=== PATIENT | female | born 1990 | race Caucasian/White ===

== ENCOUNTER 2018-03-10 20:40 | Outpatient (CLI) | payer BC, SELFPAY ==
[2018-03-10 21:21] VITALS: BMI 33.0
--- NOTE | 2018-03-10 22:48 | OB.TRI.NOTE ---
History of Present Illness Date of Service: 03/10/18 Was patient seen by the physician?: Yes Reason For Visit: R/O PRE E Date of Service: 03/10/18 Final DOM: 03/31/18 Final DOM Source: LMP Gestational age: 37 Weeks and 0 Days History of Present Illness: 27 year old at 37 weeks EGA by LMP. Patient presented to office visit on 03/09/18 with BLE swelling. Assessment negative in office and BP normal, +1 BLE pitting edema. Patient had Pre-E labs drawn and Protein/Creatine ratio elevated at 0.4. Patient had 24hr urine protein ordered but was not completed due to lab closure time. Notified patient that she needed to come to hosptial for NST, BP check and evaluation due to elevated pro/creat ratio. Denies any headache, scotoma, chest pain, shortness of breath, vaginal bleeding, leakage of fluid or contractions. Patient states BLE edema has improved today. Home Medications Medication Instructions Recorded Vits [Prenatabs FA] 1 tablet PO DAILY 03/10/18 Sertraline HCl [Zoloft] 50 mg PO DAILY 03/10/18 Allergies No Known Allergies Allergy (Verified 03/10/18 21:41) Physical Exam General: Alert, Oriented x3, No apparent distress Cardiovascular: Regular rate, Regular Rhythm, No murmurs Lungs: Clear to auscultation, Normal air movement, No rhonchi, No wheeze Extremities:: Deep tendon reflexes - +2/4 bilateral patella. , Other - +1 pedal edema, pitting. Colnus +2 BLE NST - FHR Rate Baby A Baseline: 135 Variability:: Moderate Accelerations:: 15 x 15 Decelerations:: None NST Reactive:: Yes FHR Category:: Category I Uterine Activity:: Irregular, mild, patient does not feel contractions Impression/Plan A: 27 year old at 37 weeks for r/o pre-eclampsia Elevated protein/creat ratio P: 1) Normotensive on visit today. 2) NST reative 3) 24hr Urine started while on unit today, to return to [facility] lab in 24hr. 4) Appt on Monday at 9am for evaluation and BP check 5) notified about patient labs, elevated pro/creat ratio, clonus beats, and normotensive. Agrees with plan for D/C home and follow up on 03/12/18 6) Pre-E warning signs given to patient and reviewed when to call.
--- NOTE | 2018-03-10 23:05 | OB.TRI.HP_ITS ---
History of Present Illness Date of Service: 03/10/18 Was patient seen by the physician?: Yes Reason For Visit: R/O PRE E Date of Service: 03/10/18 Final DOM: 03/31/18 Final DOM Source: LMP Gestational age: 37 Weeks and 0 Days History of Present Illness: 27 year old at 37 weeks EGA by LMP. Patient presented to office visit on 09/16 with BLE swelling. Assessment negative in office and BP normal, +1 BLE pitting edema. Patient had Pre-E labs drawn and Protein/Creatine ratio elevated at 0.4. Patient had 24hr urine protein ordered but was not completed due to lab closure time. Notified patient that she needed to come to hosptial for NST, BP check and evaluation due to elevated pro/creat ratio. Denies any headache, scotoma, chest pain, shortness of breath, vaginal bleeding, leakage of fluid or contractions. Patient states BLE edema has improved today. Home Medications Medication Instructions Recorded Vits [Prenatabs FA] 1 tablet PO DAILY 03/10/18 Sertraline HCl [Zoloft] 50 mg PO DAILY 03/10/18 Allergies No Known Allergies Allergy (Verified 03/10/18 21:41) Physical Exam General: Alert, Oriented x3, No apparent distress Cardiovascular: Regular rate, Regular Rhythm, No murmurs Lungs: Clear to auscultation, Normal air movement, No rhonchi, No wheeze Extremities:: Deep tendon reflexes - +2/4 bilateral patella. , Other - +1 pedal edema, pitting. Colnus +2 BLE NST - FHR Rate Baby A Baseline: 135 Variability:: Moderate Accelerations:: 15 x 15 Decelerations:: None NST Reactive:: Yes FHR Category:: Category I Uterine Activity:: Irregular, mild, patient does not feel contractions Impression/Plan A: 27 year old at 37 weeks for r/o pre-eclampsia Elevated protein/creat ratio P: 1) Normotensive on visit today. 2) NST reative 3) 24hr Urine started while on unit today, to return to [facility] lab in 24hr. 4) Appt on Monday at 9am for evaluation and BP check 5) notified about patient labs, elevated pro/creat ratio, clonus beats, and normotensive. Agrees with plan for D/C home and follow up on 03/12/18 6) Pre-E warning signs given to patient and reviewed when to call.
[2018-03-11 21:41] LABS: 24 Hour Urine Protein 534.3 mg/24HR (<150 MG/24HR); 24HR. UA Prot. Total Volume 1775 mL; Urine Protein (24 Hour) 30.1 mg/dL (<11.9)
== END 2018-03-10 22:45 | disposition home or self-care (01) ==
LOC: WPOUT 21:15 → WP 21:20
PROVIDERS: Advanced Practice Midwife; Family Provider Student in an Organized Health Care Education/Training Program; PCP Student in an Organized Health Care Education/Training Program; Visit Provider Obstetrics & Gynecology
DX: Z34.03 Encounter for supervision of normal first pregnancy, third trimester (principal); M79.89 Other specified soft tissue disorders; R94.4 Abnormal results of kidney function studies
CPT/HCPCS: 59025; 59050; 84156; 99218; G0378

== ENCOUNTER 2018-03-12 07:07 | Inpatient (IN) | payer BC, SELFPAY ==
[2018-03-12 07:45] VITALS: BMI 31.4
[2018-03-12] MEDS: Lactated Ringers 1,000 ML 50 ML IV (08:00)
[2018-03-12 08:22] LABS: Hematocrit 32.6 % (37-47); Hemoglobin 10.5 g/dl (12.0-15.0); Mean Corp Hgb Conc 32.2 g/gl (32-36); Mean Corpuscular Hgb 28.3 pg (27.0-32.0); Mean Corpuscular Volume 87.9 fL (81-99); Mean Platelet Vol. 11.9 fl (6.2-12.0); Platelet Count 179 K/mm3 (150-450); Red Blood Count 3.71 M/mm3 (4.2-5.4); White Blood Count 8.9 K/mm3 (4.4-11.0)
[2018-03-12 08:23] LABS: Scan Indicated on CBC? Y/N NO
[2018-03-12 08:26] LABS: International Normalized Ratio 0.9; Prothrombin Time (Protime)PT. 12.5 SECONDS (11.7-14.9)
[2018-03-12 08:27] LABS: Partial Thromboplast Time 24.9 Seconds (24.1-36.2)
[2018-03-12 08:31] LABS: AST(SGOT) 24 U/L (15-37); Alanine Aminotransfer ALT/SGPT 25 U/L (13-56); Creatinine, Serum 0.69 mg/dL (0.55-1.02); EST Glomerular Filtration Rate 107 mL/min (>60); Est Glom Filt Rate - Afr Amer 129 mL/min (>60); Uric Acid 5.1 mg/dL (2.6-6.0)
[2018-03-12] MEDS: miSOPROStol 25 MCG TABLET VAGINAL ×4 (08:38→21:09)
--- NOTE | 2018-03-12 09:00 | PCM.HP.OB ---
- Problem List (1) Proteinuria affecting in third trimester Status: Acute (2) History of anxiety Status: Acute (3) Pre-eclampsia Status: Acute Qualifiers: Trimester: third trimester Qualified Code(s): O14.93 - Unspecified pre-eclampsia, third trimester History Date of Admission: 03/12/18 Final DMO: 03/31/18 Final DOM Source: US <20 weeks Gestational age: 37 Weeks and 2 Days History of this : Patient seen in office on Monday03/09/18 for new onset severe pedal edema. Patient was normotensive at that time. Baseline pre-eclampsia bloodwork and 24 hour urine collected. 24 hour urine value >500 with remainder of blood work in normal range. Decision made with attending provider at that time to induce patient's labor for atypical pre-eclampsia with large proteinuria. Pertinent Past Medical History: Hx of Anxiety/Depression - patient currently takes Zoloft 50mg PO daily Allergies No Known Allergies Allergy (Verified 03/10/18 21:41) Current Medications Acetaminophen (Tylenol) 325 - 650 mg PO Q4H PRN PRN PRN Reason: PAIN OR FEVER >100.4F Al Hydroxide/Mg Hydroxide (Mylanta Ii) 15 - 30 ml PO Q4H PRN PRN PRN Reason: INDIGESTION Citric Acid/Sodium Citrate (Bicitra) 30 ml PO UD PRN Lactated Ringer's () 1,000 mls @ 50 mls/hr IV .Q20H [facility] Last Admin: 03/12/18 08:00 Dose: 50 mls/hr Misoprostol (Cytotec) 25 mcg VAGINAL Q4H [facility] Stop: 03/13/18 04:51 Nalbuphine HCl (Nubain) 5 - 10 mg IV Q3H PRN PRN PRN Reason: PAIN (4-10/10) Ondansetron HCl (Zofran) 4 mg IV Q8H PRN PRN PRN Reason: NAUSEA Promethazine HCl (Phenergan) 6.25 - 12.5 mg IV Q4H PRN PRN; Protocol PRN Reason: IF NAUSEA PERSISTS Sodium Chloride () 5 - 15 ml IV UD [facility] Smoking Status: Never smoker Alcohol: None Drug Use: none Number of Fetus(es): 1 Review of Systems Constitutional: Denies: Chills, Fever, Weight Change HEENT: Denies: Head Aches, Sinus Congestion, Sinus Drainage Cardiovascular: Denies: Chest Pain, Palpitations Respiratory: Denies: Shortness of Breath, Shortness of breath at rest Gastrointestinal: Denies: Abdominal Pain, Nausea, Vomiting Genitourinary: Denies: Dysuria Gynecological: Denies: Vaginal bleeding, Vaginal discharge Musculoskeletal: Denies: Joint Pain, Joint Tenderness Skin: Denies: Rash, Wounds Neurological: Denies: Numbness, Tingling, Focal weakness Psychiatric: Denies: Anxiety, Depression, Homicidal Ideations, Suicidal Ideations Hematologic/ Lymphatic: Denies: Easy Bruising, Easy Bleeding Physical Exam Vitals: See nursing notes for vitals FHT baseline 135, moderate variability, +accels, no decels noted Ctx uterine irritability noted EFW = 6# by Rivera's General: Alert, Oriented x3, No apparent distress Cardiovascular: Regular rate, Regular Rhythm Lungs: Clear to auscultation Abdomen: Soft, Non Tender, Gravid, Appropriate for Gestational Age Extremities:: No edema Estimated gestational size: Appropriate for gestational size Presentation: Cephalic Cervix Dilation (cm): 0 Station: -3 Effacement (%): 30 Assessment/Plan Active and Suspected Problems Proteinuria affecting in third trimester (Acute) History of anxiety (Acute) Pre-eclampsia (Acute) 27 y/o @ 37.2 weeks, Atypical pre-eclampsia without severe features, Proteinuria, Category I FHT P: 1) Consultation with Dr. Darian DOW, plan to induce using Cytotec at this time 2) Admit patient - IV start, CBC, T+S, repeat Pre-eclampsia labs drawn 3) Reassess SVE in 4 hours or PRN Zelda BELLE
--- NOTE | 2018-03-12 09:11 | HP.PCM_ITS ---
- Problem List (1) Proteinuria affecting in third trimester Status: Acute (2) History of anxiety Status: Acute (3) Pre-eclampsia Status: Acute Qualifiers: Trimester: third trimester Qualified Code(s): O14.93 - Unspecified pre- eclampsia, third trimester History Date of Admission: 03/12/18 Final DOM: 03/31/18 Final DOM Source: US <20 weeks Gestational age: 37 Weeks and 2 Days History of this : Patient seen in office on Monday03/09/18 for new onset severe pedal edema. Patient was normotensive at that time. Baseline pre-eclampsia bloodwork and 24 hour urine collected. 24 hour urine value >500 with remainder of blood work in normal range. Decision made with attending provider at that time to induce patient's labor for atypical pre-eclampsia with large proteinuria. Pertinent Past Medical History: Hx of Anxiety/Depression - patient currently takes Zoloft 50mg PO daily Allergies No Known Allergies Allergy (Verified 03/10/18 21:41) Current Medications Acetaminophen (Tylenol) 325 - 650 mg PO Q4H PRN PRN PRN Reason: PAIN OR FEVER >100.4F Al Hydroxide/Mg Hydroxide (Mylanta Ii) 15 - 30 ml PO Q4H PRN PRN PRN Reason: INDIGESTION Citric Acid/Sodium Citrate (Bicitra) 30 ml PO UD PRN Lactated Ringer's () 1,000 mls @ 50 mls/hr IV .Q20H [facility] Last Admin: 03/12/18 08:00 Dose: 50 mls/hr Misoprostol (Cytotec) 25 mcg VAGINAL Q4H [facility] Stop: 03/13/18 04:51 Nalbuphine HCl (Nubain) 5 - 10 mg IV Q3H PRN PRN PRN Reason: PAIN (4-10/10) Ondansetron HCl (Zofran) 4 mg IV Q8H PRN PRN PRN Reason: NAUSEA Promethazine HCl (Phenergan) 6.25 - 12.5 mg IV Q4H PRN PRN; Protocol PRN Reason: IF NAUSEA PERSISTS Sodium Chloride () 5 - 15 ml IV UD [facility] Smoking Status: Never smoker Alcohol: None Drug Use: none Number of Fetus(es): 1 Review of Systems Constitutional: Denies: Chills, Fever, Weight Change HEENT: Denies: Head Aches, Sinus Congestion, Sinus Drainage Cardiovascular: Denies: Chest Pain, Palpitations Respiratory: Denies: Shortness of Breath, Shortness of breath at rest Gastrointestinal: Denies: Abdominal Pain, Nausea, Vomiting Genitourinary: Denies: Dysuria Gynecological: Denies: Vaginal bleeding, Vaginal discharge Musculoskeletal: Denies: Joint Pain, Joint Tenderness Skin: Denies: Rash, Wounds Neurological: Denies: Numbness, Tingling, Focal weakness Psychiatric: Denies: Anxiety, Depression, Homicidal Ideations, Suicidal Ideations Hematologic/ Lymphatic: Denies: Easy Bruising, Easy Bleeding Physical Exam Vitals: See nursing notes for vitals FHT baseline 135, moderate variability, +accels, no decels noted Ctx uterine irritability noted EFW = 6# by Rivera's General: Alert, Oriented x3, No apparent distress Cardiovascular: Regular rate, Regular Rhythm Lungs: Clear to auscultation Abdomen: Soft, Non Tender, Gravid, Appropriate for Gestational Age Extremities:: No edema Estimated gestational size: Appropriate for gestational size Presentation: Cephalic Cervix Dilation (cm): 0 Station: -3 Effacement (%): 30 Assessment/Plan Active and Suspected Problems Proteinuria affecting in third trimester (Acute) History of anxiety (Acute) Pre-eclampsia (Acute) 27 y/o @ 37.2 weeks, Atypical pre-eclampsia without severe features, Proteinuria, Category I FHT P: 1) Consultation with Dr. Darian DOW, plan to induce using Cytotec at this time 2) Admit patient - IV start, CBC, T+S, repeat Pre-eclampsia labs drawn 3) Reassess SVE in 4 hours or PRN Zelda BELLE
[2018-03-12] MEDS: 0.9% Saline Lock 10 ML Syringe IV (09:33)
--- NOTE | 2018-03-12 13:25 | PCM.PN.OB ---
Patient Problems: Active and Suspected Problems Proteinuria affecting in third trimester (Acute) History of anxiety (Acute) Pre-eclampsia (Acute) Subjective: Patient sitting in bed, reporting mild cramping at this time. Denies any other issues. Objective: See Nursing note for vital signs - WNL FHT baseline 125, moderate variability, no decels, + Accels Ctx irregular, not palpable SVE closed, 2nd dose of cytotec placed - Physical Exam General: Alert, Oriented x3, Cooperative HEENT: Atraumatic, Normocephalic Neck: Supple Lungs: Clear to auscultation, Normal air movement Cardiovascular: Regular rate, Regular Rhythm, No murmurs Abdomen: Soft, Non Tender Extremities: No edema, Capillary Refill Less than 3 Seconds, No Calf Tenderness Skin: No rashes, No breakdown Musculoskeletal: No Tenderness to Palpation of Joints or Extremities Neurological: Cranial nerves II-XII grossly intact Psych/Mental Status: Normal Affect, Appropriate, Alert and oriented to time, place, person, mood and affect Weight: 174 lb 13.225 oz Body Mass Index (BMI) 31.4 Intake and Output for Last 24 Hours 03/10/18 03/11/18 03/12/18 23:59 23:59 23:59 Intake Total 520 / 520 Output Total 550 / 550 Balance -30 / -30 Laboratory Tests Past 24 Hrs 03/12/18 03/12/18 03/12/18 08:05 08:05 08:05 WBC 8.9 RBC 3.71 L Hgb 10.5 L Hct 32.6 L MCV 87.9 MCH 28.3 MCHC 32.2 RDW 13.0 RDW Differential 42.0 Plt Count 179 MPV 11.9 PT 12.5 INR 0.9 APTT 24.9 Creatinine Estim Creat Clear Calc Est GFR (MDRD) Af Amer Est GFR (MDRD) Non-Af Uric Acid AST ALT Blood Type O POSITIVE Antibody Screen NEGATIVE 03/12/18 08:05 WBC RBC Hgb Hct MCV MCH MCHC RDW RDW Differential Plt Count MPV PT INR APTT Creatinine 0.69 Estim Creat Clear Calc 96.00 Est GFR (MDRD) Af Amer 129 Est GFR (MDRD) Non-Af 107 Uric Acid 5.1 AST 24 ALT 25 Blood Type Antibody Screen Medical Necessity - Tobacco Use Smoking Status: Never smoker Assessment/Plan Active and Suspected Problems Proteinuria affecting in third trimester (Acute) History of anxiety (Acute) Pre-eclampsia (Acute) A: 27 y/o @ 37.2 weeks, Atypical preeclampsia without severe features, Cytotec induction P: 1) Continue present management 2) Anticipate placement of suazo catheter this evening Zelda Winston CNM
--- NOTE | 2018-03-12 17:44 | PCM.PN.OB ---
Patient Problems: Active and Suspected Problems Proteinuria affecting in third trimester (Acute) History of anxiety (Acute) Pre-eclampsia (Acute) Subjective: Patient sitting up in bed, reporting slight increase in uterine cramping at this time but denies any other issues. Patient's remains at the bedside providing support. Objective: VSS - see nursing note for vital signs FHT baseline 135, moderate variability, + accels, no decels noted Ctx q 3-5 minutes, mildly palpable SVE = by nursing exam at last check, FT - Physical Exam General: Alert, Oriented x3, Cooperative HEENT: Atraumatic, Normocephalic Neck: Supple Lungs: Clear to auscultation, Normal air movement Cardiovascular: Regular rate, Regular Rhythm, No murmurs Abdomen: Soft, Non Tender Extremities: No edema - Trace non-pitting pedal edema, Capillary Refill Less than 3 Seconds, No Calf Tenderness Skin: No rashes, No breakdown Musculoskeletal: No Tenderness to Palpation of Joints or Extremities Neurological: Cranial nerves II-XII grossly intact, Deep Tendon Reflexes 2+/4 and Symmetrical Psych/Mental Status: Normal Affect, Appropriate, Alert and oriented to time, place, person, mood and affect Weight: 174 lb 13.225 oz Body Mass Index (BMI) 31.4 Intake and Output for Last 24 Hours 03/10/18 03/11/18 03/12/18 23:59 23:59 23:59 Intake Total 0 / 2060 Output Total 1100 / 1100 Balance 960 / 960 Laboratory Tests Past 24 Hrs 03/12/18 03/12/18 03/12/18 08:05 08:05 08:05 WBC 8.9 RBC 3.71 L Hgb 10.5 L Hct 32.6 L MCV 87.9 MCH 28.3 MCHC 32.2 RDW 13.0 RDW Differential 42.0 Plt Count 179 MPV 11.9 PT 12.5 INR 0.9 APTT 24.9 Creatinine Estim Creat Clear Calc Est GFR (MDRD) Af Amer Est GFR (MDRD) Non-Af Uric Acid AST ALT Blood Type O POSITIVE Antibody Screen NEGATIVE 03/12/18 08:05 WBC RBC Hgb Hct MCV MCH MCHC RDW RDW Differential Plt Count MPV PT INR APTT Creatinine 0.69 Estim Creat Clear Calc 96.00 Est GFR (MDRD) Af Amer 129 Est GFR (MDRD) Non-Af 107 Uric Acid 5.1 AST 24 ALT 25 Blood Type Antibody Screen Medical Necessity - Tobacco Use Smoking Status: Never smoker Assessment/Plan Active and Suspected Problems Proteinuria affecting in third trimester (Acute) History of anxiety (Acute) Pre-eclampsia (Acute) A: 27 y/o @ 37.2wks, Atypical Pre-eclampsia without severe features, Proteinuria, Cytotec IOL, Category I FHT P: 1) Continue present management - anticipate repeat suazo bulb catheter placement at next exam or repeat cytotec pending vaginal exam. 2) Encourage ambulation and position changes 3) Reassess SVE ~2030 or PRN Zelda Winston APRN-VEE
--- NOTE | 2018-03-12 21:20 | PCM.PN.OB ---
Patient Problems: Active and Suspected Problems Proteinuria affecting in third trimester (Acute) History of anxiety (Acute) Pre-eclampsia (Acute) Subjective: Patient sitting up in bed reporting increased cramping and more regular ctx. Patient reports no other issues at this time. Denies ALVARADO, denies scotoma, denies RUQ pain. Objective: VSS, Afebrile FHT baseline 130, moderate variability, + accels, no decels noted Ctx q 3-5 minutes, palpate mild to moderate in strength SVE = 1/50/-2, posterior, moderately firm - Physical Exam General: Alert, Oriented x3, Cooperative HEENT: Atraumatic, Normocephalic Neck: Supple Lungs: Clear to auscultation, Normal air movement Cardiovascular: Regular rate Abdomen: Soft, Non Tender, Gravid, Appropriate for Gestational Age Extremities: No edema, Capillary Refill Less than 3 Seconds Skin: No rashes, No breakdown Musculoskeletal: No Tenderness to Palpation of Joints or Extremities Neurological: Cranial nerves II-XII grossly intact, Deep Tendon Reflexes 2+/4 and Symmetrical - No clonus noted Psych/Mental Status: Normal Affect, Appropriate, Alert and oriented to time, place, person, mood and affect Weight: 174 lb 13.225 oz Body Mass Index (BMI) 31.4 Intake and Output for Last 24 Hours 03/10/18 03/11/18 03/12/18 23:59 23:59 23:59 Intake Total 2860 / 2860 Output Total 1300 / 1300 Balance 1560 / 1560 Laboratory Tests Past 24 Hrs 03/12/18 03/12/18 03/12/18 08:05 08:05 08:05 WBC 8.9 RBC 3.71 L Hgb 10.5 L Hct 32.6 L MCV 87.9 MCH 28.3 MCHC 32.2 RDW 13.0 RDW Differential 42.0 Plt Count 179 MPV 11.9 PT 12.5 INR 0.9 APTT 24.9 Creatinine Estim Creat Clear Calc Est GFR (MDRD) Af Amer Est GFR (MDRD) Non-Af Uric Acid AST ALT Blood Type O POSITIVE Antibody Screen NEGATIVE 03/12/18 08:05 WBC RBC Hgb Hct MCV MCH MCHC RDW RDW Differential Plt Count MPV PT INR APTT Creatinine 0.69 Estim Creat Clear Calc 96.00 Est GFR (MDRD) Af Amer 129 Est GFR (MDRD) Non-Af 107 Uric Acid 5.1 AST 24 ALT 25 Blood Type Antibody Screen Medical Necessity - Tobacco Use Smoking Status: Never smoker Assessment/Plan Active and Suspected Problems Proteinuria affecting in third trimester (Acute) History of anxiety (Acute) Pre-eclampsia (Acute) 27 y/o @ 37.2 weeks, Atypical Pre-eclampsia without severe features, Proteinuria, Category I FHT P: 1 ) Patient very tearful during vaginal exam d/t increased discomfort now that provider finger can be placed through os - recommendation for placement of suazo catheter into cervix made to help assist in further dilation over night. Risks/benefits of suazo catheter over repeat dose of cytotec discussed. Patient requests repeat cytotec dose at this time as she is unsure how she will tolerate the cervical exam needed for suazo placement. 2) 25 mg Cytotec placed PV by provider 3) All patient questions answered 4) Reassess cervix PRN or in 4 hours with next scheduled exam Zelda Winston CNM
[2018-03-13] MEDS: miSOPROStol 25 MCG TABLET VAGINAL (01:16)
[2018-03-13] MEDS: 0.9% Saline Lock 10 ML Syringe IV ×2 (05:28→07:49)
--- NOTE | 2018-03-13 05:43 | PN.OBGYN_ITS ---
Patient Problems: Active and Suspected Problems Proteinuria affecting in third trimester (Acute) History of anxiety (Acute) Pre-eclampsia (Acute) Subjective: Patient was able to sleep last night, patient reports she is feeling better now that she has had many hours of sleep. Patient feels frequent strong contractions now, grimacing and breathing through ctx from time to time. Patient denies any vaginal bleeding or vaginal discharge. Objective: VSS, Afebrile FHT baseline 135, moderate variability, + accels, No decels Ctx q 1-2 minutes, palpate mild to moderate in strength SVE = 1-2/60/-2, Anterior, moderately soft - Physical Exam General: Alert, Oriented x3, Cooperative HEENT: Atraumatic, Normocephalic Neck: Supple, Thyroid Normal Size and Texture Lungs: Clear to auscultation, Normal air movement Cardiovascular: Regular rate, Regular Rhythm Abdomen: Soft, Non Tender, Gravid, Appropriate for Gestational Age Extremities: No edema, Capillary Refill Less than 3 Seconds, No Calf Tenderness Skin: No rashes, No breakdown Musculoskeletal: No Tenderness to Palpation of Joints or Extremities Neurological: Cranial nerves II-XII grossly intact Psych/Mental Status: Normal Affect, Appropriate, Alert and oriented to time, place, person, mood and affect Weight: 174 lb 13.225 oz Body Mass Index (BMI) 31.4 Intake and Output for Last 24 Hours 03/11/18 03/12/18 03/13/18 23:59 23:59 23:59 Intake Total 3360 / 3360 Output Total 2100 / 2100 Balance 1260 / 1260 Laboratory Tests Past 24 Hrs 03/12/18 03/12/18 03/12/18 08:05 08:05 08:05 WBC 8.9 RBC 3.71 L Hgb 10.5 L Hct 32.6 L MCV 87.9 MCH 28.3 MCHC 32.2 RDW 13.0 RDW Differential 42.0 Plt Count 179 MPV 11.9 PT 12.5 INR 0.9 APTT 24.9 Creatinine Estim Creat Clear Calc Est GFR (MDRD) Af Amer Est GFR (MDRD) Non-Af Uric Acid AST ALT Blood Type O POSITIVE Antibody Screen NEGATIVE 03/12/18 08:05 WBC RBC Hgb Hct MCV MCH MCHC RDW RDW Differential Plt Count MPV PT INR APTT Creatinine 0.69 Estim Creat Clear Calc 96.00 Est GFR (MDRD) Af Amer 129 Est GFR (MDRD) Non-Af 107 Uric Acid 5.1 AST 24 ALT 25 Blood Type Antibody Screen Medical Necessity - Tobacco Use Smoking Status: Never smoker Assessment/Plan Active and Suspected Problems Proteinuria affecting in third trimester (Acute) History of anxiety (Acute) Pre-eclampsia (Acute) 27 y/o @ 37.3 weeks, IOL for Atypical Pre-eclampsia without severe features , Proteinuria P: 1) Last dose of cytotec held, frequent contractions noted. 2) Encourage showering, ambulation and eating breakfast 3) Anticipate starting pitocin this morning (as patient continues to decline suazo bulb placement) after patient has showered and patient has eaten breakfast. Zelda BELLE
[2018-03-13] MEDS: Oxytocin 30 units/NS 500 ml 30 UNITS/500 ML IV.SOLN IV (07:50)
--- NOTE | 2018-03-13 08:49 | PCM.PN.BLA ---
Progress Note S: Patient feeling ctxs O: cvx 2/70/-2 AROM clear fluid IUPC placed fhts 130 with mod variability, accels tocos Q2 min A&P: continue pit induction BP's normal Epidural when desired GBS positive - start pcn
[2018-03-13] MEDS: fentaNYL-bupivacaine (epidural) 100 ML BAG EPIDURAL ×2 (09:51→14:21)
[2018-03-13] MEDS: Lactated Ringers 1,000 ML 50 ML IV ×3 (10:09→17:42)
[2018-03-13] MEDS: Acetaminophen 325 MG Tablet PO (15:13)
[2018-03-13] MEDS: Oxytocin 30 units/NS 500 ml 30 UNITS/500 ML IV.SOLN 334 UNITS IV (19:21)
[2018-03-13] MEDS: Oxytocin 30 units/NS 500 ml 30 UNITS/500 ML IV.SOLN 167 UNITS IV (19:51)
--- NOTE | 2018-03-13 20:00 | PCM.OB.VAG ---
Vaginal Delivery Maternal Presentation: Medically Indicated Induction Method of Induction: Pitocin, Amniotomy, Cytotec Amniotic Membrane Rupture Type: Artificial Amniotic Fluid Description: Clear Final DOM: 03/31/18 Gestational age: 37 Weeks and 4 Days Date of Procedure: 03/13/18 Pre-Operative Diagnosis: Pre-eclampsia Post-Operative Diagnosis: Pre-eclampsia, Non reassuring heart tones Surgery/ Procedure Performed: Vacuum Assisted Vaginal Delivery Type of Anesthesia: Epidural Description of Procedure: Patient c/c/+1. Patient assessed for intermittent minimal variability and intermittent decelerations. Pushed with patient & descent noted. Variability was intermittently moderate, some accels & no persistent decels. Patient was prepped & draped when c/c/+2. Prolonged decel in the 70's noted & decision made to use vacuum. Fht's improved. head position confirmed. Vacuum placed on head & position confirmed. With next maternal ctx and 1 gentle pull of the vacuum the head crowned. Vacuum released. Gentle traction placed on head to allow delivery of anterior & posterior shoulders. No excess traction placed on head. Body delivered & placed on maternal abdomen. 3vc clamped & cut in delayed fashion. Placenta delivered with gentle traction. Good uterine tone obtained. Presentation: ALBERTINA Placental Delivery Description: Expressed Placenta Disposition: [facility] Cord Vessel Description: 3 Vessels Cord Entanglement: None (1 minute): 8 (5 minute): 9 Episiotomy Description: None Laceration: 1st degree - bilateral vaginal and left labia minora - repaired with 3-0 vicryl Medications given after delivery: IV Pitocin Complications: None
[2018-03-14] VITALS (7 sets, daily range): BP systolic 118–140; BP diastolic 68–86; PULSE 66–91; RESP 16–18; TEMP 36.3–36.9; O2SAT 97–98
--- NOTE | 2018-03-14 08:08 | DCINST_ITS ---
Discharge Diet: No Restrictions Discharge Activity: May Drive, May Shower May resume sexual activity in: 6 weeks Weight Bearing Status: Weight bearing as tolerated Additional Instructions: If you experience any of the following, contact your healthcare provider. * Bleeding that soaks a pad every hour for 2 hours * Fever 100.4 or higher * Unrelieved incision or abdominal pain * Swelling, redness, discharge or bleeding from your incision or episiotomy site * Your incision begins to separate * Problems urinating (including inability to urinate or burning while urinating) . * Visual changes * Severe headache * Flu-like symptoms * Pain or redness in one of both of your breasts * Pain, warmth, tenderness or swelling in your legs, especially the calf area * Frequent nausea and vomiting * Symptoms of depression or anxiety If you experience any of the following, call 911 or go to the nearest Emergency Room. * Chest pain * Problems breathing * Seizure activity * Partial or complete paralysis of a body part, slurred speech, weakness or drooping of the face, or a sudden inability to walk or hold your balance Allergies/Adverse Reactions: Allergies No Known Allergies Allergy (Verified 03/10/18 21:41) Medications to take at Discharge Vits [Prenatabs FA ] 1 tablet PO DAILY 03/10/18 Sertraline HCl [Zoloft] 50 mg PO DAILY 03/10/18 Primary Care Physician: Bob Strong DO [Primary Care Provider] -
--- NOTE | 2018-03-14 08:08 | PCM.DCVAG ---
Discharge Diet: No Restrictions Discharge Activity: May Drive, May Shower May resume sexual activity in: 6 weeks Weight Bearing Status: Weight bearing as tolerated Additional Instructions: If you experience any of the following, contact your healthcare provider. Bleeding that soaks a pad every hour for 2 hours Fever 100.4 or higher Unrelieved incision or abdominal pain Swelling, redness, discharge or bleeding from your incision or episiotomy site Your incision begins to separate Problems urinating (including inability to urinate or burning while urinating). Visual changes Severe headache Flu-like symptoms Pain or redness in one of both of your breasts Pain, warmth, tenderness or swelling in your legs, especially the calf area Frequent nausea and vomiting Symptoms of depression or anxiety If you experience any of the following, call 911 or go to the nearest Emergency Room. Chest pain Problems breathing Seizure activity Partial or complete paralysis of a body part, slurred speech, weakness or drooping of the face, or a sudden inability to walk or hold your balance Allergies/Adverse Reactions: Allergies No Known Allergies Allergy (Verified 03/10/18 21:41) Medications to take at Discharge Vits [Prenatabs FA ] 1 tablet PO DAILY 03/10/18 Sertraline HCl [Zoloft] 50 mg PO DAILY 03/10/18 Primary Care Physician: Bob Strong DO [Primary Care Provider] -
--- NOTE | 2018-03-14 08:10 | PCM.PN.OB ---
Patient Problems: Active and Suspected Problems Proteinuria affecting in third trimester (Acute) History of anxiety (Acute) Pre-eclampsia (Acute) Subjective: No complaints - Physical Exam General: Alert, Oriented x3 Abdomen: Soft, Non Tender, Non-Distended - ff mid & below umb Extremities: No Calf Tenderness - 2+ edema bilaterally Vital Signs Temp Pulse Resp BP Pulse Ox 98.1 F 91 18 118/78 97 03/14/18 03:48 03/14/18 03:48 03/14/18 03:48 03/14/18 03:48 03/14/18 03:48 Oxygen Delivery Method Room Air Weight: 174 lb 13.225 oz Body Mass Index (BMI) 31.4 Intake and Output for Last 24 Hours 03/12/18 03/13/18 03/14/18 23:59 23:59 23:59 Intake Total 3360 / 3360 4487 / 4487 Output Total 2100 / 2100 3650 / 3650 500 / 500 Balance 1260 / 1260 837 / 837 -500 / -500 Medical Necessity - Tobacco Use Smoking Status: Never smoker Assessment/Plan Active and Suspected Problems Proteinuria affecting in third trimester (Acute) History of anxiety (Acute) Pre-eclampsia (Acute) PPD#1 PreE - BP's normal Routine care
[2018-03-14] MEDS: Acetaminophen 500 MG Tablet 1000 MG PO ×2 (08:53→21:33)
[2018-03-14] MEDS: Sertraline 50 MG Tablet PO (09:42)
[2018-03-15 01:53] VITALS: BP 113/66; PULSE 70; RESP 16; TEMP 36.2
--- NOTE | 2018-03-15 07:42 | PCM.PN.OB ---
Patient Problems: Active and Suspected Problems Proteinuria affecting in third trimester (Acute) History of anxiety (Acute) Pre-eclampsia (Acute) Subjective: pt seen at bedside, doing well. pt reports good pain control. lochia mild. Breast feeding going well. - Physical Exam General: Alert, Oriented x3 Abdomen: Soft, Non Tender, Non-Distended, - - fundus firm Extremities: No Calf Tenderness Vital Signs Temp Pulse Resp BP Pulse Ox 97.2 F L 70 16 113/66 97 03/15/18 01:53 03/15/18 01:53 03/15/18 01:53 03/15/18 01:53 03/14/18 03:48 Oxygen Delivery Method Room Air Weight: 79.3 kg Body Mass Index (BMI) 31.4 Intake and Output for Last 24 Hours 03/13/18 03/14/18 03/15/18 23:59 23:59 23:59 Intake Total 4487 / 4487 Output Total 3650 / 3650 500 / 500 Balance 837 / 837 -500 / -500 Medical Necessity - Tobacco Use Smoking Status: Never smoker Assessment/Plan Active and Suspected Problems Proteinuria affecting in third trimester (Acute) History of anxiety (Acute) Pre-eclampsia (Acute) PPD#2, doing well routine care dc home- will follow up with [facility] on monday 03/19 @ 9am for BP check s/sx PP PRE E reviewed
[2018-03-15 09:00] VITALS: BP 123/73; PULSE 68; RESP 16; TEMP 36.6
[2018-03-15] MEDS: Sertraline 50 MG Tablet PO (09:55)
[2018-03-15] MEDS: Senna/Docusate Sodium 1 Tablet PO (09:56)
[2018-03-15] MEDS: Acetaminophen 500 MG Tablet 1000 MG PO (09:56)
[2018-03-15 12:00] VITALS: BP 120/68; PULSE 62; RESP 16; TEMP 36.6
[2018-03-15 12:49] VITALS: BP 120/68; PULSE 62; RESP 16; TEMP 36.6
== END 2018-03-15 13:15 | disposition home or self-care (01) | DRG 775 ==
PROVIDERS: Admitting Provider Obstetrics & Gynecology; Family Provider Student in an Organized Health Care Education/Training Program; PCP Student in an Organized Health Care Education/Training Program; Visit Provider Obstetrics & Gynecology
DX: O14.94 Unspecified pre-eclampsia, complicating childbirth (principal); O99.824 Streptococcus B carrier state complicating childbirth; O76 Abnormality in fetal heart rate and rhythm complicating labor and delivery; O70.0 First degree perineal laceration during delivery; O99.344 Other mental disorders complicating childbirth; F32.9 Major depressive disorder, single episode, unspecified; F41.9 Anxiety disorder, unspecified; Z79.899 Other long term (current) drug therapy; Z3A.37 37 weeks gestation of pregnancy; Z37.0 Single live birth
CPT/HCPCS: 59025; 59050; 82565; 84450; 84460; 84550; 85027; 85610; 85730; 86850; 86900; 99218; J7120; A4216; G0378

== ENCOUNTER 2018-03-19 13:44 | Outpatient (CLI) | payer BC, SELFPAY | END 2018-03-19 14:44 | disposition home or self-care (01) | LOC: WPOUT 13:46 → WP 13:46 | PROVIDERS: Family Provider Student in an Organized Health Care Education/Training Program; PCP Student in an Organized Health Care Education/Training Program; Visit Provider Obstetrics & Gynecology | DX: Z00.00 Encounter for general adult medical examination without abnormal findings (principal) ==

== ENCOUNTER 2022-12-12 16:45 | Inpatient (IN) | payer BC, SELFPAY ==
[2022-12-12] VITALS (7 sets, daily range): BP systolic 113–136; BP diastolic 70–88; PULSE 76–93; TEMP 36.2–37.3; O2SAT 96–99; BMI 35.4
[2022-12-12] MEDS: Lactated Ringers 1,000 ML 50 ML IV (17:25)
[2022-12-12 17:42] LABS: Absolute Lymphocyte Count 1.54 X10^3/uL (0.83-4.51); Absolute Neutrophil Count 6.8 X10^3/uL (2.0-7.7); Basophil# 0.02 X10^3/uL; Basophil% 0.2 % (0-1); Eosinophil# 0.07 X10^3/uL; Eosinophils% 0.8 % (0-5); Hematocrit 36.4 % (37-47); Lymphocyte # 1.54 X10^3/ul (0.83-4.51); Lymphocyte % 16.9 % (19-41); Mean Corpuscular Hgb 29.9 pg (27.0-32.0); Mean Corpuscular Volume 90.8 fL (81-99); Mean Platelet Vol. 11.5 fl (6.2-12.0); Monocyte# 0.64 X10^3/uL; NRBC Flagged by Analyzer 0 % (0-5); Neutrophil % 74.7 % (47-70); Platelet Count 207 K/mm3 (150-450); RBC Distribution Width CV 13.6 % (11.6-14.6); RBC Distribution Width SD 45.4 fl (35.1-43.9); Red Blood Count 4.01 M/mm3 (4.2-5.4); White Blood Count 9.1 K/mm3 (4.4-11.0)
[2022-12-12 17:56] LABS: AST(SGOT) 36 U/L (15-37); Alanine Aminotransfer ALT/SGPT 36 U/L (13-56); Creatinine, Serum 0.78 mg/dL (0.55-1.02); EST Glomerular Filtration Rate 90 mL/min (>60); Est Glom Filt Rate - Afr Amer 109 mL/min (>60); Estimated Creatinine Clearance 81.14 ml/min; Uric Acid 4.8 mg/dL (2.6-6.0)
[2022-12-12 18:04] LABS: Protein, Urine (Random) 262.7 mg/dL (<11.9); Protein:Creat Ratio 1642 mg/g CRE (0-200)
[2022-12-12] MEDS: 0.9% Normal Saline Single 100 ML IV.SOLN. INTRA-UTER (18:41)
--- NOTE | 2022-12-12 18:50 | HP.PCM.OB_ITS ---
HPI - General General Date of Admission: 12/12/22 HPI Narrative AARON PAYNE, is a 32 F at 40.0 who presents for induction of labor. Patient was sent over from office for elevated blood pressures and proteinuria. Patient denies any headache, vision changes, or RUQ pain. has been uncomplicated. She has a history of depression, anxiety and preeclampsia with previous . Maternal Data Information DOM Calculator Estimated Delivery Date Method Current WG Current Estimate 12/12/22 Manual 40w 0d PFSH PFSH Medical History (Updated 12/12/22 @ 18:59 by Jennifer Shepherd CNM) Anxiety depression Pre-eclampsia Home Medications vits,calcium no.78-iron fumarate-folic acid 29 mg-1 mg tablet (Prenatabs FA) 1 tab PO DAILY 03/10/18 [History Last Taken 12/12/22 07:00] sertraline 50 mg tablet 50 mg PO DAILY anxiety 03/10/18 [History Last Taken 12/12/22 07:00] amoxicillin 500 mg capsule 500 mg PO TID Check with primary doctor 12/12/22 [History Last Taken 12/12/22 12:00] aspirin 81 mg tablet,delayed release 81 mg PO DAILY Check with primary doctor 12/12/22 [History Last Taken 12/12/22 07:00] doxylamine succinate 25 mg tablet (Unisom (doxylamine)) 25 mg PO QHS PRN Sleep 12/12/22 [History Last Taken 11/23/22 21:00] Allergy/AdvReac Type Severity Reaction Status Date / Time No Known Allergies Allergy Verified 03/10/18 21:41 Surgical History (Updated 12/12/22 @ 17:51 by Meredith Merritt) History of surgery Social History Smoking Status: Never smoker History Elective abortions Hx Para 1 Spontaneous abortions Hx # Term Pregnancies Ectopic pregnancies Hx # Pregnancies Multiple births # of living children Visit Details OB Flowsheet Initial Weight: Not Recorded Date -?-?-?-?-?-?-?-?-?-?-?-?- EGA Weight BP Urine Prot -?-?-?-?-?-?-?-?-?-?-?-?- Glucose FHR FuHt Pres Dilation -?-?-?-?-?-?-?-?-?-?-?-?- Effaced St Visit Note 12/12/22 -?-?-?-?-?-?-?-?-?-?-?-?- 40w 0d 193 lb 9.054 oz 133/85 -?-?-?-?-?-?-?-?-?-?-?-?- -?-?-?-?-?-?-?-?-?-?-?-?- NST FHR Rate Baby A Baseline: 140 Variability:: Moderate Accelerations:: 15 x 15 Decelerations:: None NST Reactive:: Yes FHR Category:: Category I Uterine Activity:: irritability Vital Signs Vital Signs Vital Signs: 12/12/22 17:29 12/12/22 18:23 12/12/22 18:23 Temperature 99.1 F Temperature Source Pulse Rate 90 Blood Pressure 133/85 H BP Systolic 133 BP Diastolic 85 Pulse Ox 12/12/22 18:23 12/12/22 18:23 12/12/22 18:23 Temperature 99.1 F Temperature Source Temporal Pulse Rate Blood Pressure BP Systolic BP Diastolic Pulse Ox 99 Weight Weight: 193 lb 9.054 oz Body Mass Index (BMI) 35.4 Labs Labs Labs: Blood Type O POSITIVE Antibody Screen NEGATIVE Hct 36.4 % (37-47) L Hgb 12.0 g/dL (12.0-15.0) Rhogam given: No GBS negative Assessment & Plan (1) Pre-eclampsia: QUALIFIERS: Trimester: third trimester Qualified Code(s): O14.93 - Unspecified pre-eclampsia, third trimester (2) Proteinuria affecting in third trimester: (3) History of anxiety: (4) History of depression: (5) Encounter for induction of labor: (6) 40 weeks gestation of : PLAN: Plan PIH labs drawn- pending P/C ratio- 1600 Hypertension protocol Admit to labor and delivery Start IV fluids and run per orders CE- 1.5/70/-2 Muñiz bulb placed without difficulty and balloon filled with 30 cc N/S GBS negative Pitocin IV 2 mu/min to start once arrives (per patient request) Pain medications/epidural when indicated Anticipate Dr. Wilkerson involved with plan of care and is collaborating physician
[2022-12-12] MEDS: Oxytocin 15 Units/NS 250ml 15 UNITS/250 ML IV.SOLN 2 UNITS IV (21:06)
[2022-12-13] VITALS (59 sets, daily range): BP systolic 101–142; BP diastolic 58–91; PULSE 67–105; RESP 16–20; TEMP 36.2–37.6; O2SAT 89–100
[2022-12-13] MEDS: LACTATED RINGERS 500 ML 999 ML IV (00:04)
[2022-12-13] MEDS: fentaNYL-bupivacaine (epidural) 100 ML BAG EPIDURAL ×2 (01:05→05:11)
[2022-12-13] MEDS: Lactated Ringers 1,000 ML 200 ML IV ×2 (03:18→08:51)
--- NOTE | 2022-12-13 07:08 | PCM.PN.BLA ---
Progress Note Patient seen at bedside. Comfortable with epidural. Assessment & Plan Assessment/Plan (1) 40 weeks gestation of : (2) Encounter for induction of labor: (3) History of anxiety: (4) Pre-eclampsia: QUALIFIERS: Trimester: third trimester Qualified Code(s): O14.93 - Unspecified pre-eclampsia, third trimester (5) History of depression: PLAN: Plan Continue plan of care No out of range blood pressures Continue Pitocin IV per policy AROM for clear fluid CE 6.5/85/0 Anticipate
[2022-12-13] MEDS: Sertraline 50 MG Tablet PO (07:10)
--- NOTE | 2022-12-13 09:16 | EX.PCM.OBRPT ---
Assessment & Plan (1) (spontaneous vaginal delivery): (2) Care and examination of lactating mother: (3) History of depression: (4) History of anxiety: Maternal Data Information DOM Calculator Estimated Delivery Date Method Current WG Current Estimate 12/12/22 Manual 40w 1d Vaginal Delivery Maternal Presentation Maternal Presentation: Medically Indicated Induction Maternal Presentation: at 40.0 weeks gestation for induction of labor for preeclampsia. Type of Induction: Pitocin, Muñiz Bulb and Amniotomy Medical Reason for Induction: Preeclampsia, eclampsia Operative Information Date of Procedure: 12/13/22 Pre-Operative Diagnosis: Term gestation, induction of labor, preeclampsia Post-Operative Diagnosis: Same, live female infant Surgery / Procedure Performed: Spontaneous Vaginal Delivery Type of Anesthesia: Epidural Drain: Muñiz to straight drain Estimated Blood Loss: 300 Time of Delivery: 09:04 Findings Description of Procedure: Called to bedside while patient was pushing. With minimal maternal effort, head was delivered over intact perineum followed by posterior shoulder and remainder of infant body. Vigorous female placed on maternal abdomen and was attended to by nursing staff. Pitocin IV started for active management of the third stage of labor. 3 vessel cord clamped and cut by FOB after delay and collection of cord blood. Placenta delivered spontaneously and intact. Fundus firm and 2 below U. Vaginal sweep completed by me. Vagina and perineum intact. EBL 300 cc. APGARS 8/9. Patient bonding well with infant. Dr. Farmer notified of delivery. Presentation: Vertex Amniotic Membrane Rupture Type: Artificial Time of Membrane Rupture: 0635 Amniotic Fluid Description: Clear Placental Delivery Description: Spontaneous Placenta Disposition: [facility] Cord Vessel Description: 3 Vessels Cord Entanglement: None A Gender: Female (1 minute): 8 (5 minute): 9 Delayed Cord Clamping: Yes Post Vaginal Delivery Medications Given After Delivery: IV Pitocin Episiotomy Description: None Laceration: None Complication Complications: None
[2022-12-13] MEDS: Oxytocin 15 Units/NS 250ml 15 UNITS/250 ML IV.SOLN 83 UNITS IV (09:25)
[2022-12-13] MEDS: 0.9% Saline Lock 10 ML Syringe IV (12:33)
--- NOTE | 2022-12-13 20:51 | NURSING ---
RN received report from previous RN, Teresa Blum, that pt indwelling suazo catheter removed at 1130 on this day and that pt able to void independently, no indwelling suazo catheter in place when this RN assumed care of pt at 1920, previous RN did not chart indwelling suazo catheter removal time
[2022-12-13] MEDS: Ibuprofen 600 MG Tablet PO (22:48)
[2022-12-14] VITALS (7 sets, daily range): BP systolic 122–127; BP diastolic 71–83; PULSE 64–82; RESP 14–20; TEMP 36.3–36.7; O2SAT 98–99
[2022-12-14] MEDS: Acetaminophen 500 MG Tablet 1000 MG PO (03:41)
--- NOTE | 2022-12-14 07:20 | NURSING ---
bedside report given to Nell Ferguson RN and Dick Garcia RN who are assuming care of pt at this time
--- NOTE | 2022-12-14 08:50 | PCM.PN.OB ---
Subjective Subjective Doing well per patient and nursing staff. Ambulating and taking PO without difficulty. Voiding and passing flatus. Pain controlled. , services for assistance. Denies headache, visual changes, chest pain, shortness of breath, leg pain or increased bleeding. Lochia normal. Objective Data Objective Data Vital Signs: Vital Signs Temp Pulse Resp BP Pulse Ox O2 Del Method 98.1 F 77 20 H 126/76 H 99 Room Air 12/14/22 08:33 12/14/22 08:33 12/14/22 03:36 12/14/22 08:33 12/14/22 08:32 12/14/22 03:36 Oxygen Delivery Method Room Air Weight: 193 lb 9.054 oz Body Mass Index (BMI) 35.4 Intake & Output: Intake and Output for Last 24 Hours 12/12/22 12/13/22 12/14/22 23:59 23:59 23:59 Intake Total 6.40 / 6.40 2912.76 / 2912.76 Output Total 650 / 650 1900 / 1900 Balance -643.60 / -643.60 1012.76 / 1012.76 Lab / Micro Data Result Diagrams: 12/12/22 17:25 12/12/22 17:25 ROS Constitutional Constitutional: Reports systems reviewed and no addt'l complaints, except as documented; Denies headache(s) Eyes Eyes: Denies acute decrease in peripheral vision, blurry vision or change in vision ENT HEENT: Reports systems reviewed and no addt'l complaints, except as documented Cardiovascular Cardiovascular: Denies chest pain or dizziness Respiratory/Chest Respiratory/Chest: Denies cough, dyspnea, dyspnea on exertion, shortness of breath at rest or shortness of breath with exertion Gastrointestinal Gastrointestinal: Denies abdominal pain, diarrhea, nausea or vomiting Genitourinary Genitourinary: Denies abdominal discomfort Musculoskeletal Musculoskeletal: Denies limited range of motion Integumentary Integumentary: Reports systems reviewed and no addt'l complaints, except as documented Neurologic Neurologic: Reports systems reviewed and no addt'l complaints, except as documented Psychiatric Psychiatric: Reports systems reviewed and no addt'l complaints, except as documented Endocrine Endocrinology: Reports systems reviewed and no addt'l complaints, except as documented Hematologic/Lymphatic Hematologic/Lymphatic: Reports systems reviewed and no addt'l complaints, except as documented Allergic/Immunologic Allergic/Immunologic: Reports systems reviewed and no addt'l complaints, except as documented Physical Exam Const alert and oriented x3 General Appearance: cooperative Orientation / Consciousness: awake, oriented to person, oriented to place and oriented to time Exam Limitations: no limitations HEENT normocephalic Head and Scalp: normal to inspection, normocephalic and atraumatic Face and Sinus: normal facial exam Eyes General Eye: normal appearance of both eyes Neck full ROM Chest Chest: symmetrical chest wall rise Resp normal respiratory effort and normal air movement Auscultation: clear to auscultation bilaterally Cardio regular rate, regular rhythm, S1 normal heart sound, S2 normal heart sound, no murmurs, no rub, no gallops and no clicks GI normal to inspection, nondistended, normoactive bowel sounds and non-tender appearance of the vagina normal Bladder / Kidney Exam: no CVA tenderness Back/Spine normal ROM Extremity normal to inspection and full ROM Skin no rashes or lesions noted Neuro oriented x3 and moves all extremities Sensorium / Orientation: awake, alert and oriented to person Motor Exam: clonus absent Deep Tendon Reflexes: Rt Patellar (L4): 2+ and Lt Patellar (L4): 2+ Assessment & Plan (1) Care and examination of lactating mother: (2) (spontaneous vaginal delivery): (3) Pre-eclampsia: QUALIFIERS: Trimester: third trimester Qualified Code(s): O14.93 - Unspecified pre-eclampsia, third trimester PLAN: Plan 1) Routine PP care 2) I&O 3) Pain management 4) BP stable 5) Patient requesting discharge home, will place order for outpatient bp monitoring 6) Follow up in 7 for PP visit and 6 weeks 7) D/C home
--- NOTE | 2022-12-14 12:12 | PCM.DC.SUM ---
Providers Date of Admission: 12/12/22 Primary Care Physician: Dr. Bob Strong DO Reason For Visit: LABOR & DELIVERY/VAGINAL DELIVERY Diagnosis Discharge Diagnosis (1) (spontaneous vaginal delivery): Status: Acute Code(s): O80 - Encounter for full-term uncomplicated delivery (2) Care and examination of lactating mother: Status: Acute Code(s): Z39.1 - Encounter for care and examination of lactating mother (3) History of depression: Status: Acute Code(s): Z86.59 - Personal history of other mental and behavioral disorders (4) History of anxiety: Status: Acute Code(s): Z86.59 - Personal history of other mental and behavioral disorders Medications at Discharge Home Medications vits,calcium no.78-iron fumarate-folic acid 29 mg-1 mg tablet (Prenatabs FA) 1 tab PO DAILY 03/10/18 sertraline 50 mg tablet 50 mg PO DAILY anxiety 03/10/18 acetaminophen 500 mg tablet 1,000 mg PO Q6H PRN PRN Pain 1-10 Or Fever #0 tabs 12/14/22 ibuprofen 600 mg tablet 600 mg PO Q6H PRN PRN Pain Score 1-3 #0 tabs 12/14/22 Weight / BMI Weight Weight: 193 lb 9.054 oz Body Mass Index (BMI) 35.4 ABG / Lab / Microbiology Data Result Diagrams: 12/12/22 17:25 12/12/22 17:25 Meaningful Use Info Meaningful Use Diagnoses (Choose all that apply): None applicable Discharge Plan Admission Admit Date/Time: 12/12/22 16:45 Primary Reason for Your Visit: Vaginal Delivery Attending Provider: Jennifer Shepherd Primary Care Provider: Bob Strong Instructions Additional Instructions / Restrictions: Discharge Orders/Prescriptions Prescriptions: New acetaminophen 500 mg Tablet 1,000 mg PO Q6H PRN PRN (Reason: Pain 1-10 Or Fever) Qty: 0 0RF ibuprofen 600 mg Tablet 600 mg PO Q6H PRN PRN (Reason: Pain Score 1-3) Qty: 0 0RF Continued sertraline 50 MG tablet 50 mg PO DAILY Prenatabs FA 1 TABLET tablet 1 tab PO DAILY Discontinued amoxicillin 500 mg Capsule 500 mg PO TID aspirin [Aspir-81] 81 mg Tablet,Delayed Release (Dr/Ec) 81 mg PO DAILY Unisom (doxylamine) 25 mg Tablet 25 mg PO QHS PRN (Reason: Sleep) Referrals / Follow Up: Bob Strong DO [Primary Care Provider] - (Follow up in 5-7 days after delivery for blood pressure check. 6 week PP visit) Disposition Disposition (needs filled in before D/C Order can be placed): Home, Self Care
--- NOTE | 2022-12-14 13:37 | NURSING ---
1330: Patient was given [employer] on demand education papers on After a vaginal delivery and Eclampsia after childbirth.
== END 2022-12-14 17:10 | disposition home or self-care (01) | DRG 807 ==
PROVIDERS: Obstetrics & Gynecology; Admitting Provider Advanced Practice Midwife; PCP Student in an Organized Health Care Education/Training Program; Visit Provider Advanced Practice Midwife
DX: O14.94 Unspecified pre-eclampsia, complicating childbirth (principal); Z37.0 Single live birth; O99.344 Other mental disorders complicating childbirth; F32.A Depression, unspecified; F41.9 Anxiety disorder, unspecified; O99.892 Other specified diseases and conditions complicating childbirth; Z3A.40 40 weeks gestation of pregnancy; Z79.82 Long term (current) use of aspirin; Z79.899 Other long term (current) drug therapy
CPT/HCPCS: 59025; 59050; 82565; 82570; 84156; 84450; 84460; 84550; 85025; 86850; 86900; 86901; 99221; J7120; A4216; G0378